=== PATIENT | male | born 1970 | race Caucasian/White ===

== ENCOUNTER 2020-08-21 10:58 | Outpatient (CLI) | payer OTHER, SELFPAY ==
--- NOTE | ~2020-08-21 | XR_ITS ---
XR chest 2V DATE: 08/21/2020 11:44 INDICATION: Syncope and collapse TECHNIQUE: 2 views COMPARISON: 01/30/2018 two-view chest FINDINGS: Normal heart size. .No pulmonary infiltrate or consolidation, pleural effusion or pulmonary vascular congestion or pneum othorax. IMPRESSION: No active cardiopulmonary disease Reviewed, dictated and finalized at location A. MAKER
== END 2020-08-21 10:59 ==
LOC: MICIMG 10:59
PROVIDERS: Visit Provider Family Medicine
DX: R55 Syncope and collapse (principal)
CPT/HCPCS: 71046

== ENCOUNTER → 2020-08-24 11:40 | Outpatient (CLI) | payer OTHER, SELFPAY ==
--- NOTE | ~2020-08-24 | CT_ITS ---
EXAMINATION: CT brain wo con DATE: 08/24/2020 11:57 INDICATION: Syncope and collapse. TECHNIQUE: Computed tomography (CT) of the head was performed without intravenous contrast. The mA wa s adjusted according to patient size. Iterative reconstruction technique was employed. The dose-lengt h product was 599.57 mGy-cm. COMPARISON: None FINDINGS: There is no intracranial hemorrhage, acute infarction, or abnormal intracranial mass lesion . The ventricles are normal in size. The paranasal sinuses are clear. The orbits are normal. The mast oid air cells are normal. IMPRESSION: 1. Normal brain. Reviewed, dictated and finalized at location A. INSPECTOR IMPRESSION: 1. Normal brain.
== END ==
PROVIDERS: PCP Family Medicine; Visit Provider Family Medicine
DX: R55 Syncope and collapse (principal)
CPT/HCPCS: 70450

== ENCOUNTER 2020-09-30 08:35 | Outpatient (CLI) | payer OTHER, SELFPAY ==
--- NOTE | ~2020-09-30 | CT_ITS ---
EXAMINATION: CT cervical spine [facility] EXAM DATE: 09/30/2020 09:20 INDICATION: Chronic neck pain. TECHNIQUE: Spiral CT of the cervical spine was performed without contrast. Axial images were reviewe d. Coronal and sagittal reformatted images were also reviewed. The dose-length product (DLP) for thi s examination was 379.80 mGy-cm. The exposure was tailored according to patient size (auto mA exposu re control), and iterative reconstruction (ASIR) was used as additional dose reduction technique. ere is no prior study for comparison. FINDINGS: The odontoid process is intact. The lateral masses of C1 line up with C2. Prevertebral so ft tissue and pre-dens space are within normal limits. Mild to moderate loss of the disc height fro m C5 through T2. The vertebral bodies are aligned in the AP dimension. Level by level evaluation: C2-C3: There is a mild diffuse disc bulge. Uncovertebral joint arthropathy: None. Facet joint arthropathy: Minimal bilateral. Neural foraminal stenosis: No stenosis. Central canal stenosis: No stenosis. C3-C4: There is a mild diffuse disc bulge. Uncovertebral joint arthropathy: Mild bilateral. Facet joint arthropathy: Mild bilateral. Neural foraminal stenosis: Mild right. Central canal stenosis: No stenosis. C4-C5: There is a mild diffuse disc bulge. Uncovertebral joint arthropathy: None. Facet joint arthropathy: Mild bilateral. Neural foraminal stenosis: No stenosis. Central canal stenosis: No stenosis. C5-C6: There is a mild to moderate diffuse disc bulge. Uncovertebral joint arthropathy: Mild to moderate left, mild right. Facet joint arthropathy: Mild to moderate bilateral. Neural foraminal stenosis: Mild bilateral. Central canal stenosis: Mild. C6-C7: There is a mild diffuse disc bulge. Uncovertebral joint arthropathy: Mild to moderate bilateral. Facet joint arthropathy: Mild to moderate bilateral. Neural foraminal stenosis: Mild bilateral. Central canal stenosis: Mild. C7-T1: Disc does not extend beyond the endplate margin. Uncovertebral joint arthropathy: None. Facet joint arthropathy: Mild bilateral. Neural foraminal stenosis: No stenosis. Central canal stenosis: No stenosis. IMPRESSION: 1. Mild to moderate cervical spondylosis. 2. No acute findings. Reviewed, dictated and finalized at location A.
== END 2020-09-30 08:36 | disposition home or self-care (01) ==
PROVIDERS: PCP Family Medicine; Visit Provider Physician Assistant
DX: G56.91 Unspecified mononeuropathy of right upper limb (principal); G89.29 Other chronic pain; M47.892 Other spondylosis, cervical region
CPT/HCPCS: 72125

== ENCOUNTER 2022-05-05 14:57 | Outpatient (CLI) | payer OTHER, SELFPAY ==
--- NOTE | ~2022-05-05 | CT_ITS ---
EXAMINATION:CT lung screening DATE: 05/05/2022 15:11 INDICATION: Tobacco use. Current smoker with 60 pack year history. TECHNIQUE: Computed tomography (CT) of the chest was performed without intravenous contrast. Automate d exposure control and iterative reconstruction technique were employed. The dose-length product (DLP ) was 142.94 mGy-cm. COMPARISON: None. FINDINGS: There is moderate emphysema. There is a 3 mm nodule in right upper lobe. There is a 6 mm no dule in right lower lobe. Calcified right lung nodules and calcified right hilar and mediastinal lymp h nodes are consistent with old granulomatous disease. No pleural effusion. The heart size is normal. No pericardial effusion. There is mild thoracic spondylosis. IMPRESSION: 1. Lung-RADS category 3: Probably benign. Further evaluation is recommended with noncontrast low-dose chest CT in 6 months. Reviewed, dictated and finalized at location A. FILLER IMPRESSION: 1. Lung-RADS category 3: Probably benign. Further evaluation is recommended wit h noncontrast low-dose chest CT in 6 months.
== END 2022-05-05 14:58 ==
LOC: MICIMG 14:59
PROVIDERS: PCP Family Medicine; Visit Provider Nurse Practitioner Gerontology
DX: Z12.2 Encounter for screening for malignant neoplasm of respiratory organs (principal); Z87.891 Personal history of nicotine dependence; R91.8 Other nonspecific abnormal finding of lung field
CPT/HCPCS: 71271

== ENCOUNTER 2022-10-27 09:18 | Outpatient (CLI) | payer OTHER, SELFPAY ==
--- NOTE | ~2022-10-27 | CT_ITS ---
EXAMINATION:CT chest high resolution wo co DATE: 10/27/2022 09:31 INDICATION: Other nonspecific abnormal finding in lung field. Lung nodule. TECHNIQUE: Computed tomography (CT) of the chest was performed without intravenous contrast. Automate d exposure control and iterative reconstruction technique were employed. The dose-length product (DLP ) was 334.76 mGy-cm. COMPARISON: Chest CT 05/05/2022 FINDINGS: There is mild emphysema. There is a stable 6 mm nodule in right lower lobe. There is a 2 mm nodule in right upper lobe. There is mild scarring at left lung apex. Calcified bilateral lung nodul es and calcified right hilar and mediastinal lymph nodes are consistent with old granulomatous diseas e. No pleural effusion or pneumothorax. The heart size is normal. No pericardial effusion. There is e ctasia of ascending aorta measuring 4.3 cm . There are calcifications of aortic valve. There is mild thoracic spondylosis. IMPRESSION: 1. Lung-RADS category 2: Benign appearance or behavior. Continue annual screening with noncontrast lo w-dose chest CT in 12 months. Reviewed, dictated and finalized at location A. IMPRESSION: 1. Lung-RADS category 2: Benign appearance or behavior. Continue annual screeni ng with noncontrast low-dose chest CT in 12 months.
== END 2022-10-27 09:19 ==
PROVIDERS: PCP Family Medicine; Visit Provider Nurse Practitioner Gerontology
DX: R91.8 Other nonspecific abnormal finding of lung field (principal)
CPT/HCPCS: 71250

== ENCOUNTER 2023-12-04 12:15 | Outpatient (CLI) | payer OTHER, SELFPAY ==
--- NOTE | ~2023-12-04 | MR_ITS ---
MRI of the lumbar spine Clinical History: Spinal stenosis Technique: Axial T2-weighted images, and sagittal T1-weighted, T2-weighted, and and T2 fat-sat images were acquired. COMPARISON: 06/13/2014 Findings: There is no fracture or subluxation of the lumbar spine. Vertebral bodies maintain normal h eight and alignment. No suspicious or abnormal bone marrow signal abnormality seen. At L1-L2, there is no disc bulge or herniation. There is moderate to advanced facet arthropathy. No c entral canal stenosis or neural foraminal narrowing. At L2-L3, there is mild to moderate degenerative disc narrowing. There is diffuse disc bulge with sev ere facet arthropathy. There is minimal central canal stenosis with mild left lateral recess stenosis . Bilateral neural foramina otherwise are preserved. At L3-L4, there is mild degenerative disc narrowing. There is diffuse disc bulge with moderate facet arthropathy. There is minimal central canal stenosis and mild bilateral neural foraminal narrowing, r ight worse than left. At L4-L5, there is diffuse disc bulge with severe facet arthropathy. There is minimal central canal s tenosis. There is moderate right neural foraminal narrowing, and mild left neural foraminal narrowing . At L5-S1, there is diffuse disc bulge or protrusion, worst at the central to left paracentral region. There is moderate facet arthropathy. No central canal stenosis. There is severe bilateral neural for aminal compromise. Paravertebral soft tissues are unremarkable. Impression: Moderate degenerative spondylosis, as detailed above. Reviewed, dictated and finalized at [facility]. Impression: Moderate degenerative spondylosis, as detailed above.
--- NOTE | ~2023-12-04 | CT_ITS ---
CT Scan of the Chest without Contrast: Clinical Indication: Lung cancer screening, nicotine dependence Technique: Contiguous sections were acquired throughout the chest without intravenous contrast. Dose reduction technique was used on this scan by utilizing automated exposure control and iterative recon struction technique. The dose-length product (DLP) was 134.76 mGy-cm. COMPARISON: 10/27/2022 Findings: There is no evidence of any significant mediastinal, hilar or axillary lymphadenopathy. The mediastin al soft tissues appear normal. There is no evidence of pleural or pericardial effusion. The lungs are clear. No pulmonary nodules or infiltrates are noted. Moderate emphysema. Images through the upper abdomen reveal no abnormalities. Impression: Lung RADS 1: Negative. 12 month follow-up screening CT advised. Moderate emphysema. Reviewed, dictated and finalized at [facility]. Impression: Lung RADS 1: Negative. 12 month follow-up screening CT advised. Moderate emphysema.
== END 2023-12-04 12:16 | disposition home or self-care (01) ==
LOC: ANHIMG 12:15
PROVIDERS: PCP Family Medicine; Visit Provider Family Medicine
DX: M48.061 Spinal stenosis, lumbar region without neurogenic claudication (principal); F17.200 Nicotine dependence, unspecified, uncomplicated; M47.896 Other spondylosis, lumbar region
CPT/HCPCS: 71271; 72148

== ENCOUNTER 2024-03-21 15:24 | Outpatient (CLI) | payer OTHER, SELFPAY ==
[2024-03-23 20:23] LABS: Amphetamines NEGATIVE ng/mL (<500); Barbiturates NEGATIVE ng/mL (<300); Benzodiazepines NEGATIVE ng/mL (<100); Cocaine Metabolite NEGATIVE ng/mL (<150); Marijuana Metabolite NEGATIVE ng/mL (<20); Methadone Metabolite NEGATIVE ng/mL (<100); Opiates POSITIVE ng/mL (<100); Oxidant NEGATIVE mcg/mL (<200); PCP NEGATIVE ng/mL (<25); Specific Gravity 1.005 (> or = 1.003); pH 5.9 (4.5-9.0)
== END 2024-03-21 15:25 | disposition home or self-care (01) ==
LOC: ANHLAB 15:26
PROVIDERS: PCP Family Medicine; Visit Provider Student in an Organized Health Care Education/Training Program
DX: E78.5 Hyperlipidemia, unspecified (principal); F11.90 Opioid use, unspecified, uncomplicated
CPT/HCPCS: 80307

== ENCOUNTER 2024-05-21 00:07 | Day surgery (SDC) | payer OTHER, SELFPAY ==
[2024-05-07 09:55] VITALS: BMI 26.6
[2024-05-21 07:40] VITALS: BP 116/83; PULSE 94; RESP 16; TEMP 36.5; O2SAT 98; BMI 24.8
--- NOTE | 2024-05-21 07:49 | WPDANESEPPF ---
Anes - Initial Pre Proc Eval Procedure: Operation Date: 05/21/24 09:00 Proposed Procedures p Screening Colonoscopy - Jose Juan Hay MD Date/Time: 05/21/24 07:49 Surgeon: Jose Juan Hay MD Pre Op Diagnosis: screening colon Patient Data Age: 54 Gender: M Height: 1.78 m Weight: 78.6 kg Last Vital Signs Temp 97.7 F 05/21/24 07:40 Pulse 94 05/21/24 07:40 Resp 16 05/21/24 07:40 BP 116/83 05/21/24 07:40 Pulse Ox 98 05/21/24 07:40 O2 Del Method Room Air 05/21/24 07:40 Allergies Allergy/AdvReac Type Severity Reaction Status Date / Time morphine AdvReac Hives Verified 05/21/24 07:45 Home Medications Medication Instructions Recorded Confirmed Type ezetimibe 10 mg tablet (Zetia) 10 mg PO DAILY #90 tabs 02/07/23 05/21/24 Rx sertraline 50 mg tablet See Rx Instructions .Route 12/29/23 05/21/24 Rx .COMPLEX #180 tabs naloxone 4 mg/actuation nasal 4 mg intranasal Q2M PRN opioid 03/21/24 05/21/24 Rx spray (Narcan) overdose #2 ea rosuvastatin 20 mg tablet 20 mg PO DAILY #90 tabs 03/21/24 05/21/24 Rx albuterol sulfate 90 mcg/actuation 1 inh inhalation Q4H PRN shortness 04/21/24 05/21/24 Rx aerosol inhaler of breath or wheezing #6.7 grams cyclobenzaprine 10 mg tablet 10 mg PO TID PRN Muscle Spasm 05/07/24 05/21/24 History fluticasone fur. 100 mcg-umeclid 1 inh inhalation DAILY 05/07/24 05/21/24 History 62.5 mcg-vilant 25 mcg inhalat.powder (Trelegy Ellipta) hydrocodone 7.5 mg-acetaminophen 1 tablet PO Q4H PRN pain #160 tabs 05/20/24 05/21/24 Rx 325 mg tablet omeprazole 40 mg capsule,delayed See Rx Instructions .Route 05/20/24 05/21/24 Rx release .COMPLEX #90 caps Patient hx anesthesia problems: none Family hx anesthesia problems: none Results Review: All pre-operative results and documents have been reviewed as part of the pre-operative evaluation. [facility] Past Medical History Medical History (Updated 03/21/24 @ 15:44 by Daisy Torrez PA-C) Cough Failed back surgical syndrome Fall Hyperlipidemia, unspecified Lung cancer screening declined by patient Major depressive disorder, recurrent, moderate Other chronic pain Prostate cancer screening Screening for colon cancer Screening for lung cancer Seasonal allergies Sphenoid sinusitis Spinal stenosis of lumbar region at multiple levels Spinal stenosis of lumbar region without neurogenic claudication Stye external Syncopal episodes Tobacco use disorder Family History Family History Mother Patient's mother is in good health Father Family history of malignant neoplasm of brain, Onset Age: 54 Patient's father is , Onset Age: 54 Social History Social History (Updated 03/21/24 @ 14:44 by Mary Grace Self) Social History: Smoking packs per day: 1 Smoking cigarettes per day: 20.0 Years smoked: 30 Smoking pack-years: 30.00 Smoking status: Current every day smoker Tobacco type: cigarettes Second hand tobacco smoke exposure: No Alcohol intake: never Substance use: never Substance use type: does not use Do You Feel Safe in your Home?: Yes Lack of Transportation: No Lack of Food: Never True Current Housing: I Have Housing Concerned About Future Housing: No Difficulty Paying Gas/Electric Bills: No Difficulty Paying for Meds: No Currently Unemployed: No Education: Decline to Answer Difficulty w/ Childcare or Family Care: No Living arrangements: with family Additional living arrangements comments: with Occupation/Education: occupation Gender identity (if verbalized by the patient): Male Sexual Orientation (if Verbalized by the Patient): Straight or Heterosexual Spiritual care concerns: No Anes - Eval Final PreProcedure Day of Procedure 05/21/24 07:49 Patient weight: normal Heart: regular rate and rhythm Lungs: clear to auscultation Airway: Mallampati scale class II Neurological: alert and oriented Last oral intake: >/= 8 hours ASA classification: III Emergent: no Anesthetic plan: proceed Anesthesia type and monitoring: general GIVS and standard monitoring Results Review: All pre-operative results and documents have been reviewed as part of the pre-operative evaluation. Informed Consent: The patient's anesthetic plan and its attendant risks and benefits were discussed with the patient/family/POA. Questions were solicited and answers provided to the satisfaction of the patient/family/POA.
[2024-05-21] MEDS: LACTATED RINGERS 1,000 ML 150 ML IV CONT (07:54)
--- NOTE | 2024-05-21 08:51 | PM.IMHP ---
H&P: HPI History of Present Illness Date/Time: 05/21/24 08:51 Chief Complaint: screening colonoscopy Narrative: This is the patient's first colonoscopy. There are no GI symptoms and there is no family history of colorectal cancer. Review of Systems Review of Systems: All systems reviewed & are unremarkable except as noted in HPI and below PMFSH Past Medical History Medical History (Updated 05/21/24 @ 08:53 by Jose Juan Hay MD) Cough Failed back surgical syndrome Fall Hyperlipidemia, unspecified Lung cancer screening declined by patient Major depressive disorder, recurrent, moderate Other chronic pain Prostate cancer screening Screening for colon cancer Screening for lung cancer Seasonal allergies Sphenoid sinusitis Spinal stenosis of lumbar region at multiple levels Spinal stenosis of lumbar region without neurogenic claudication Stye external Syncopal episodes Tobacco use disorder Family History Family History Mother Patient's mother is in good health Father Family history of malignant neoplasm of brain, Onset Age: 54 Patient's father is , Onset Age: 54 Social History Social History (Updated 03/21/24 @ 14:44 by Mary Grace Self) Social History: Smoking packs per day: 1 Smoking cigarettes per day: 20.0 Years smoked: 30 Smoking pack-years: 30.00 Smoking status: Current every day smoker Tobacco type: cigarettes Second hand tobacco smoke exposure: No Alcohol intake: never Substance use: never Substance use type: does not use Do You Feel Safe in your Home?: Yes Lack of Transportation: No Lack of Food: Never True Current Housing: I Have Housing Concerned About Future Housing: No Difficulty Paying Gas/Electric Bills: No Difficulty Paying for Meds: No Currently Unemployed: No Education: Decline to Answer Difficulty w/ Childcare or Family Care: No Living arrangements: with family Additional living arrangements comments: with Occupation/Education: occupation Gender identity (if verbalized by the patient): Male Sexual Orientation (if Verbalized by the Patient): Straight or Heterosexual Spiritual care concerns: No Meds Home Medications and Allergies Home Medications Medication Instructions Recorded Confirmed Type ezetimibe 10 mg tablet (Zetia) 10 mg PO DAILY #90 tabs 02/07/23 05/21/24 Rx sertraline 50 mg tablet See Rx Instructions .Route 12/29/23 05/21/24 Rx .COMPLEX #180 tabs naloxone 4 mg/actuation nasal 4 mg intranasal Q2M PRN opioid 03/21/24 05/21/24 Rx spray (Narcan) overdose #2 ea rosuvastatin 20 mg tablet 20 mg PO DAILY #90 tabs 03/21/24 05/21/24 Rx albuterol sulfate 90 mcg/actuation 1 inh inhalation Q4H PRN shortness 04/21/24 05/21/24 Rx aerosol inhaler of breath or wheezing #6.7 grams cyclobenzaprine 10 mg tablet 10 mg PO TID PRN Muscle Spasm 05/07/24 05/21/24 History fluticasone fur. 100 mcg-umeclid 1 inh inhalation DAILY 05/07/24 05/21/24 History 62.5 mcg-vilant 25 mcg inhalat.powder (Trelegy Ellipta) hydrocodone 7.5 mg-acetaminophen 1 tablet PO Q4H PRN pain #160 tabs 05/20/24 05/21/24 Rx 325 mg tablet omeprazole 40 mg capsule,delayed See Rx Instructions .Route 05/20/24 05/21/24 Rx release .COMPLEX #90 caps Allergies Allergy/AdvReac Type Severity Reaction Status Date / Time morphine AdvReac Hives Verified 05/21/24 07:45 Vital Signs Vital Signs - 24 hr 05/21/24 07:40 Temperature 97.7 F Pulse Rate 94 Respiratory Rate 16 Blood Pressure 116/83 Pulse Oximetry 98 Oxygen Delivery Room Air Exam Const: General: cooperative and healthy appearing Resp: Effort & Inspection: normal respiratory effort and able to speak in complete sentences Auscultation: clear to auscultation bilaterally Cardio: Rate: regular rate Rhythm: regular rhythm GI: Inspection: normal to inspection GI Palp: No No hepatosplenomegaly present Auscultation: normal bowel sounds Rectal Exam: deferred Skin: General skin exam: normal color Psych: Appearance: grossly normal Mental Status: mental status grossly normal Assessment and Plan Assessment and plan (1) Screening for malignant neoplasm of colon: Code(s): Z12.11 - Encounter for screening for malignant neoplasm of colon Status: Acute Assessment and Plan: The patient is deemed a good candidate for the procedure. Consent signed. Will proceed.
[2024-05-21] MEDS: SIMETHICONE ORAL SUSPENSION 20 MG/0.3 ML 30 ML BOTTLE 0.6 ML IRRIGATION (09:19)
[2024-05-21 09:29] VITALS: BP 90/61; PULSE 83; RESP 17; O2SAT 100
[2024-05-21 09:39] VITALS: BP 107/76; PULSE 80; RESP 17; O2SAT 100
[2024-05-21 09:49] VITALS: BP 114/80; PULSE 76; RESP 18; O2SAT 100
== END 2024-05-21 09:57 | disposition home or self-care (01) ==
PROVIDERS: PCP Family Medicine; Referring Provider Student in an Organized Health Care Education/Training Program; Visit Provider Internal Medicine Gastroenterology
PROC: 0DJD8ZZ Inspection of Lower Intestinal Tract, Via Natural or Artificial Opening Endoscopic (ICD-10-PCS; CPT 45378; principal; 2024-05-21 09:00)
DX: Z12.11 Encounter for screening for malignant neoplasm of colon (principal); D12.2 Benign neoplasm of ascending colon; K63.5 Polyp of colon; E78.5 Hyperlipidemia, unspecified; F33.9 Major depressive disorder, recurrent, unspecified; G89.29 Other chronic pain; M48.061 Spinal stenosis, lumbar region without neurogenic claudication; F17.210 Nicotine dependence, cigarettes, uncomplicated; Z79.51 Long term (current) use of inhaled steroids; Z79.891 Long term (current) use of opiate analgesic; Z80.8 Family history of malignant neoplasm of other organs or systems
CPT/HCPCS: 45385; 88305; J2003; J2704; J7120